=== PATIENT | female | born 1985 | race American Indian/Alaskan Native ===

== ENCOUNTER 2021-05-29 13:01 | Emergency (ER) | payer SELFPAY ==
[2021-05-29] MEDS ORDERED: dexAMETHasone 20 MG/5 ML VIAL IM ONE (18:05)
[2021-05-29] MEDS ORDERED: KETOROLAC 60 MG/2 ML INJ IM ONE (18:05)
--- NOTE | 2021-05-29 18:44 | XRay Report ---
Lumbar spine 3 views INDICATION: Low back pain. IMPRESSION: Mild multilevel discogenic and facet arthropathy noted within the lower lumbar spine part icularly at L5-S1. Signer Name: Raimundo Masters MD Signed: 05/29/2021 6:39 PM Workstation Name: [id number]
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
[2021-05-29 20:23] VITALS: BP 128/72
== END 2021-05-29 20:22 | disposition home or self-care (01) ==
LOC: EDSEX → ED 13:01
DX: M54.9 Dorsalgia, unspecified (principal); V89.2XXA Person injured in unspecified motor-vehicle accident, traffic, initial encounter; Y93.89 Activity, other specified; Y92.89 Other specified places as the place of occurrence of the external cause; Y99.8 Other external cause status
CPT/HCPCS: 72100; 96372; 99283; J1100; J1885